=== PATIENT | female | born 1990 ===

== ENCOUNTER 2017-08-27 21:01 | Emergency (ER) | payer OTHER ==
[2017-08-27 22:02] VITALS: BP 122/73
[2017-08-27] MEDS ORDERED: IBUPROFEN 800 MG TABLET PO ONE (23:19)
[2017-08-27] MEDS ORDERED: ONDANSETRON 4 MG TAB.RAPDIS PO ONE (23:19)
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
[2017-08-27] MEDS ORDERED: ONDANSETRON 4 MG TAB.RAPDIS ONE (23:25)
== END 2017-08-28 02:00 | disposition left against medical advice (07) ==
LOC: ER 21:01
DX: R51 Headache (principal); R11.0 Nausea; V43.52XA Car driver injured in collision with other type car in traffic accident, initial encounter; Z87.891 Personal history of nicotine dependence; Z53.20 Procedure and treatment not carried out because of patient's decision for unspecified reasons
CPT/HCPCS: 99281; S0119